=== PATIENT | female | born 1975 | race Caucasian/White ===

== ENCOUNTER 2016-06-05 09:03 | Day surgery (SDC) | payer OTHER ==
[~2016-06-05 09:03] MED LIST: Lactated Ringers 1,000 ML IV SCH; Lidocaine 1%/Sod Bicarbonate in NS 8.4% 1 ML Syringe IV PRN; Sodium Chloride 0.9% 10 ML Syringe FLUSH PRN
[2016-06-05] MEDS ORDERED: Lidocaine 1% with EPINEPHrine 1:100,000 20 ML MDV ONE (09:20)
--- NOTE | 2016-06-05 09:33 | PCM.PREANE ---
Preanesthetic Assessment - ANESTHESIA/TRANSFUSION/FAMILY HX Anesthesia/Transfusion History: No Prior Transfusion(s), Prior Anesthesia Type of Anesthesia Reaction: Reports: Excessive Nausea/Vomiting Family History of Anesthesia Reaction: No Intubation History: Unknown Type of Transfusion Reactions: Reports: Unknown - REVIEW OF SYSTEMS Constitutional: Reports: no symptoms COMMUNICATIONS ASSOCIATE: Reports: no symptoms Respiratory: Reports: no symptoms (diagnosed with pneumonia 05-28-16, nonproductive cough, 2 days left of abx) Cardiovascular: Reports: no symptoms GI: Reports: no symptoms Other: Reports: none - PHYSICAL ASSESSMENT HR: 102 O2 Sat by Pulse Oximetry: 97 RR: 16 BP: 158/94 Temp: 37.2 C Height: 1.65 m Weight: 127.006 kg NPO Status Date: 06/05/16 NPO Status Time: 08:00 (sips of water ) ASA Class: 2 Mental Status: alert & oriented x3 Airway Class: Mallampati = 1 Dentition: Reports: bridge (x2, non removable ) Thyro-Mental Finger Breadths: 3 Mouth Opening Finger Breadths: 3 ROM/Head Extension: full Respiratory Status: lungs clear to auscultation bilaterally Cardiovascular Status: regular rate & rhythm, normal S1, S2, no murmur, blood pressure WNL - ALLERGIES Allergies/Adverse Reactions: Allergies Allergy/AdvReac Type Severity Reaction Status Date / Time No Known Allergies Allergy Verified 06/04/16 13:30 - BLOOD Blood Available: No Product(s) Available: None - ANESTHESIA PLAN Preop [place]: No Anesthesia Type Planned: general anesthesia (PONV, recommend TIVA) - ACKNOWLEDGEMENTS Pt an appropriate candidate for the planned anesthesia: Yes Alternatives and risks of anesthesia discussed w pt/guardian: Yes Pt/Guardian understands and agree with anesthesia plan: Yes PreAnesthesia Questionnaire HEENT History: Reports: Allergic rhinitis Cardiovascular History: Reports: None Respiratory History: Reports: Other (see below) Other Respiratory History: Currently on antibiotics for pneumonia Gastrointestinal History: Reports: None Genitourinary History: Reports: None NCQA SPECIALIST History: Reports: Other OB/BYN History: Vaginal delivery x 2, right labial cyst Musculoskeletal History: Reports: None Neurological History: Reports: Head trauma Psychiatric History: Reports: None Endocrine/Metabolic History: Reports: Obesity/BMI 30+ Hematologic History: Reports: None Immunologic History: Reports: None Oncologic (Cancer) History: Reports: None Dermatologic History: Reports: None - Infectious Disease History Infectious Disease History: Reports: None - Past Surgical History Head Surgeries/Procedures: Reports: Craniotomy HEENT Surgical History: Reports: None Cardiovascular Surgical History: Reports: None Respiratory Surgical History: Reports: None GI Surgical History: Reports: Cholecystectomy Female Surgical History: Reports: Breast reduction, section Endocrine Surgical History: Reports: None Neurological Surgical History: Reports: Other (see below) Other Neurological Surgeries/Procedures: Craniotomy sequestrectomy of skull ( due to horseback riding trauma) Musculoskeletal Surgical History: Reports: None Oncologic Surgical History: Reports: None Dermatological Surgical History: Reports: None - SUBSTANCE USE Smoking Status *Q: Never Smoker Tobacco Use Within Last Twelve Months: No Second Hand Smoke Exposure: No Recreational Drug Use History: No - HOME MEDS Home Medications: Home Meds Cefdinir 300 mg PO BID 06/04/16 [History] Norelgestromin/Ethin.Estradiol [Xulane Patch] 1 patch TRDERM WEEKLY 06/04/16 [ History] - CURRENT (IN HOUSE) MEDS Current Meds: Current Medications Lactated Ringer's (Ringers, Lactated) 1,000 mls @ 125 mls/hr IV ASDIRECTED MCKAY Stop: 06/05/16 23:00 Lidocaine/Sodium Bicarbonate (Buffered Lidocaine 1% In Ns 8.4%) 0.25 ml IV ONETIME PRN PRN Reason: Prior to IV Start Stop: 06/05/16 18:00 Sodium Chloride (Saline Flush) 10 ml FLUSH ASDIRECTED PRN PRN Reason: Keep Vein Open Stop: 06/05/16 18:00
[2016-06-05] MEDS ORDERED: Ondansetron 4 MG/2 ML SDV ONE (09:37)
[2016-06-05] MEDS ORDERED: Lidocaine 1% 2 ML SDV ONE (09:37)
[2016-06-05] MEDS ORDERED: Propofol 200 MG/20 ML SDV ONE ×5 (09:37→10:37)
[2016-06-05] MEDS ORDERED: fentaNYL 250 MCG/5 ML SDV ONE (09:37)
[2016-06-05] MEDS ORDERED: Midazolam 1 MG/ML 2 ML SDV ONE (09:37)
[2016-06-05] MEDS ORDERED: Rocuronium 50 MG/5 ML Vial ONE (10:11)
[2016-06-05] MEDS ORDERED: ceFAZolin 1 GM Vial ONE (10:11)
[2016-06-05] MEDS ORDERED: Ondansetron 4 MG/2 ML SDV IVPUSH PRN ×2 (10:15→11:02)
[2016-06-05] MEDS ORDERED: fentaNYL 100 MCG/2 ML SDV IVPUSH PRN (10:15)
[2016-06-05] MEDS ORDERED: Neostigmine Methylsulfate 1 MG/ML 5 ML Syringe ONE (10:22)
[2016-06-05] MEDS ORDERED: Lactated Ringers 1,000 ML ONE (10:30)
[2016-06-05] MEDS ORDERED: Dexamethasone 4 MG/ML SDV ONE (10:36)
[2016-06-05] MEDS ORDERED: Bacitracin Oint 15 GM Tube ONE (10:37)
[2016-06-05] MEDS ORDERED: Albuterol/Ipratropium 3.0-0.5 MG/3 ML Neb Soln ONE (10:54)
[2016-06-05] MEDS ORDERED: Acetaminophen/oxyCODONE 325-5 MG Tab PO PRN (11:02)
--- NOTE | 2016-06-05 11:08 | PCM.POSTAN ---
POST ANESTHESIA ASSESSMENT - MENTAL STATUS Mental Status: alert, oriented - VITAL SIGNS Pulse Rate: 151 SaO2: 99 Resp Rate: 15 Blood Pressure: 150/103 Temperature: 97.9 F - RESPIRATORY Respiratory Status: respiratory rate WNL, airway patent, O2 saturation stable, supplemental oxygen - CARDIOVASCULAR CV Status: blood pressure stable, elevated pulse rate - GASTROINTESTINAL GI Status: no symptoms - PAIN Pain Score: 0 - POST OP HYDRATION Hydration Status: adequate & stable - OBSERVATIONS Free Text/Narrative:: Patient is coughing. Duo neb ordered.
--- NOTE | 2016-06-05 11:10 | PCM.OPNOTE ---
- General Post-Op/Procedure Note Date of Surgery/Procedure: 06/05/16 Operative Procedure(s): Right labia majora lipectomy Findings: 4 cm x2 cm x1-1/2 cm lipoma. Pre Op Diagnosis: Right labia majora mass lesion Post-Op Diagnosis: Right labia majora lipoma Anesthesia Technique: General ET tube Primary Surgeon: Jamil Nugent Secondary Surgeon: Richy Walters Anesthesia Provider: Alayna Vieira Honing Machine Set Up Operator: Raymond Blank Pathology: Right labium majora mass-consistent with lipoma Fluid Replacement, Intraop: 1,000 EBL in mLs: 30 Complications: None Condition: Good Free Text/Narrative:: Surgeon duration: 38 minutes Complications: None Condition: Good Procedure: Patient is taken to the operating room and placed in a supine position on the operating table patient was returned to supine position She had sequential compression stockings in place for DVT prophylaxis and was administered 3 g of Ancef IV preop for infection prophylaxis. Her body mass index is 46. She was then administered general endotracheal anesthesia. After adequate anesthesia she is placed in a dorsal lithotomy position. She was prepped and draped in usual fashion. The right labia majora lesion was evaluated under anesthesia prior to the prep and was felt to be possibly a lipoma. There was no evidence that it was a hernia at that time. The area of the right labia majora lesion was found to be approximately 4 cm in length by approximately 2 cm in width. It was freely movable under the skin. The plan was to reduce the amount of skin overlying the lipoma and to remove the lipoma itself. The overlying excess skin was bunched together and approximately 8 Allis clamps were used to maral the margin of excision. The excess skin was then removed using a scissors. At this point the lipoma itself was dissected free using sharp and blunt dissection. Sutures and cautery were used for hemostasis. The subcutaneous area was closed with a running 3-0 Vicryl suture. Hemostasis was current at this time and the skin was reapproximated using numerous 3-0 Monocryl sutures on a cutting needle. At this time hemostasis was confirmed. Sponge instrument needle counts were correct. She was returned to a supine position. The patient was awakened from general endotracheal anesthesia and was discharged from the operating room in good condition.
[2016-06-05] MEDS ORDERED: Ketorolac 30 MG/ML SDV IVPUSH SCH (11:15)
[2016-06-05] MEDS ORDERED: Meperidine PF 50 MG/ML Syringe IVPUSH PRN (11:25)
[2016-06-05] MEDS ORDERED: HYDROmorphone 0.5 MG/0.5 ML Syringe IVPUSH PRN (11:25)
[2016-06-05 13:27] VITALS: BP 128/75
== END 2016-06-05 13:16 | disposition home or self-care (01) ==
LOC: JD.SDS 09:03
PROVIDERS: ATTEND Obstetrics & Gynecology
DX: D17.39 Benign lipomatous neoplasm of skin and subcutaneous tissue of other sites (principal); E66.9 Obesity, unspecified; Z79.899 Other long term (current) drug therapy; Z98.890 Other specified postprocedural states; Z78.9 Other specified health status; Z68.41 Body mass index [BMI] 40.0-44.9, adult
CPT/HCPCS: 00940; 88305; 88305-26; 94664; A9270-GY; J0690; J1100; J1885; J2250; J2405; J2704; J2710; J3010; J7120

== ENCOUNTER 2018-05-04 19:54 | Emergency (ER) | payer MEDICAID ==
[2018-05-04 20:16] VITALS: BP 149/91
[2018-05-04] MEDS ORDERED: Ondansetron 4 MG/2 ML SDV IVPUSH ONE ×2 (20:21→21:27)
[2018-05-04] MEDS ORDERED: Sodium Chloride 0.9% 10 ML Syringe FLUSH PRN (20:21)
[2018-05-04] MEDS ORDERED: Sodium Chloride 0.9% 1,000 ML IV SCH (20:30)
--- NOTE | 2018-05-04 20:57 | EDM.PDOC ---
ED HPI GENERAL MEDICAL PROBLEM - General Chief Complaint: Gastrointestinal Problem Stated Complaint: vommitting 7 hours unable to keep down fluids Time Seen by Provider: 05/04/18 20:16 Source of Information: Reports: Patient History Limitations: Reports: No Limitations - History of Present Illness INITIAL COMMENTS - FREE TEXT/NARRATIVE: The patient presents with nausea, vomiting and stomach cramps since this morning. She went to work feeling fine and she had a muffin and donut and when she went to lunch with her family she developed nausea and vomiting after. She was going every 10 minutes at one time. She will get stomach cramping first and then she will vomit. She does not have a gallbladder but she does have her appendix. She does not think she ate any bad food and she has not been around anyone who is sick. She does work at the [employer] and is in contact with different customers. Onset: Gradual Duration: Hour(s): Location: Reports: Abdomen Quality: Reports: Other (Cramping) Severity: Moderate Improves with: Reports: None Worsens with: Reports: None Associated Symptoms: Reports: Nausea/Vomiting. Denies: Chest Pain, Cough, Fever /Chills, Headaches, Shortness of Breath Abdomen Pain Score (Numeric/FACES): 4 - Related Data Allergies Allergy/AdvReac Type Severity Reaction Status Date / Time No Known Allergies Allergy Verified 05/04/18 20:18 Home Meds: Home Meds Cefdinir 300 mg PO BID 06/04/16 [History] Norelgestromin/Ethin.Estradiol [Xulane Patch] 1 patch TRDERM WEEKLY 06/04/16 [ History] Ibuprofen 600 mg PO Q4HR PRN #30 tablet 06/05/16 [Rx] Past Medical History HEENT History: Reports: Allergic Rhinitis Cardiovascular History: Reports: None Respiratory History: Reports: Other (See Below) Other Respiratory History: Currently on antibiotics for pneumonia Gastrointestinal History: Reports: None Genitourinary History: Reports: None ACQUISITION LEAD History: Reports: Other (See Below) Other ACQUISITION LEAD History: breast reduction Musculoskeletal History: Reports: None Neurological History: Reports: Head Trauma Psychiatric History: Reports: None Endocrine/Metabolic History: Reports: Obesity/BMI 30+ Hematologic History: Reports: None Immunologic History: Reports: None Oncologic (Cancer) History: Reports: None Dermatologic History: Reports: None - Infectious Disease History Infectious Disease History: Reports: None - Past Surgical History Head Surgeries/Procedures: Reports: Craniotomy Cardiovascular Surgical History: Reports: None GI Surgical History: Reports: Cholecystectomy Female Surgical History: Reports: Section Endocrine Surgical History: Reports: None Neurological Surgical History: Reports: Other (See Below) Musculoskeletal Surgical History: Reports: Other (See Below) Oncologic Surgical History: Reports: None Dermatological Surgical History: Reports: None Social & Family History - Tobacco Use Smoking Status *Q: Never Smoker - Caffeine Use Caffeine Use: Reports: Coffee - Recreational Drug Use Recreational Drug Use: No ED ROS GENERAL - Review of Systems Review Of Systems: See Below Constitutional: Reports: No Symptoms HEENT: Reports: No Symptoms Respiratory: Reports: No Symptoms Cardiovascular: Reports: No Symptoms Endocrine: Reports: No Symptoms GI/Abdominal: Reports: Abdominal Pain, Nausea, Vomiting. Denies: Diarrhea : Reports: No Symptoms Musculoskeletal: Reports: No Symptoms ED EXAM, GI/ABD - Physical Exam Exam: See Below Exam Limited By: No Limitations General Appearance: Alert, No Apparent Distress Ears: Normal External Exam Nose: Normal Inspection Head: Atraumatic, Normocephalic Neck: Normal Inspection Respiratory/Chest: No Respiratory Distress, Lungs Clear, Normal Breath Sounds Cardiovascular: Regular Rate, Rhythm, No Edema, No Murmur GI/Abdominal Exam: Soft, Non-Tender, No Organomegaly, No Mass Back Exam: Normal Inspection Extremities: Normal Inspection Course - Vital Signs Last Recorded V/S: Last Vital Signs Temp 97.5 F 05/04/18 20:10 Pulse 87 05/04/18 20:10 Resp 16 05/04/18 20:10 BP 149/91 H 05/04/18 20:10 Pulse Ox 98 05/04/18 20:10 - Orders/Labs/Meds Orders: Active Orders 24 hr Category Date Time Status Peripheral IV Care [RC] . DIRECTED Care 05/04/18 20:21 Active Sodium Chloride 0.9% [Normal Saline] 1,000 ml Med 05/04/18 20:30 Active IV .BOLUS Sodium Chloride 0.9% [Saline Flush] Med 05/04/18 20:21 Active 10 ml FLUSH ASDIRECTED PRN ED Antiemetic Medication Reflex [OM.PC] Click To Edit Oth 05/04/18 20:21 Ordered Peripheral IV Insertion Adult [OM.PC] Urgent Oth 05/04/18 20:21 Ordered Medication Orders Sodium Chloride (Normal Saline) 1,000 mls @ 1,000 mls/hr IV .BOLUS MCKAY Last Admin: 05/04/18 20:37 Dose: 1,000 mls/hr Sodium Chloride (Saline Flush) 10 ml FLUSH ASDIRECTED PRN PRN Reason: Keep Vein Open Last Admin: 05/04/18 20:37 Dose: 10 ml Labs: Laboratory Tests 05/04/18 05/04/18 05/04/18 Range/Units 20:32 20:32 20:32 WBC 10.50 H (3.98-10.04) K/mm3 RBC 4.75 (3.98-5.22) M/mm3 Hgb 13.5 (11.2-15.7) gm/L Hct 41.6 (34.1-44.9) % MCV 87.6 (79.4-94.8) fl MCH 28.4 (25.6-32.2) pg MCHC 32.5 (32.2-35.5) g/dl RDW Std Deviation 48.8 H (36.4-46.3) fL Plt Count 322 (182-369) K/mm3 MPV 9.0 L (9.4-12.3) fl Neut % (Auto) 68.9 (34.0-71.1) % Lymph % (Auto) 22.0 (19.3-51.7) % [place] % (Auto) 7.0 (4.7-12.5) % Eos % (Auto) 1.6 (0.7-5.8) Baso % (Auto) 0.3 (0.1-1.2) % Neut # (Auto) 7.24 H (1.56-6.13) K/mm3 Lymph # (Auto) 2.31 (1.18-3.74) K/mm3 [place] # (Auto) 0.73 H (0.24-0.36) K/mm3 Eos # (Auto) 0.17 (0.04-0.36) K/mm3 Baso # (Auto) 0.03 (0.01-0.08) K/mm3 Sodium 140 (136-145) mEq/L Potassium 3.7 (3.5-5.1) mEq/L Chloride 104 (98-107) mEq/L Carbon Dioxide 23 (21-32) mEq/L Anion Gap 16.7 H (5-15) BUN 11 (7-18) mg/dL Creatinine 0.9 (0.55-1.02) mg/dL Est Cr Clr Drug Dosing 73.27 mL/min Estimated GFR (MDRD) > 60 (>60) mL/min BUN/Creatinine Ratio 12.2 L (14-18) Glucose 91 (74-106) mg/dL Calcium 9.0 (8.5-10.1) mg/dL Total Bilirubin 0.5 (0.2-1.0) mg/dL AST 17 (15-37) U/L ALT 18 (14-59) U/L Alkaline Phosphatase 83 (46-116) U/L Total Protein 8.0 (6.4-8.2) g/dl Albumin 3.4 (3.4-5.0) g/dl Globulin 4.6 gm/dL Albumin/Globulin Ratio 0.7 L (1-2) Lipase 95 (73-393) U/L HCG, Qual Negative (NEGATIVE) Urine Color (Yellow) Urine Appearance (Clear) Urine pH (5.0-8.0) Ur Specific [place] (1.005-1.030) Urine Protein (Negative) Urine Glucose (UA) (Negative) Urine Ketones (Negative) Urine Occult Blood (Negative) Urine Nitrite (Negative) Urine Bilirubin (Negative) Urine Urobilinogen (0.2-1.0) Ur Leukocyte Esterase (Negative) Urine RBC (0-5) /hpf Urine WBC (0-5) /hpf Ur Epithelial Cells (0-5) /hpf Urine Bacteria (FEW) /hpf Urine Mucus (FEW) /hpf 05/04/18 Range/Units 21:45 WBC (3.98-10.04) K/mm3 RBC (3.98-5.22) M/mm3 Hgb (11.2-15.7) gm/L Hct (34.1-44.9) % MCV (79.4-94.8) fl MCH (25.6-32.2) pg MCHC (32.2-35.5) g/dl RDW Std Deviation (36.4-46.3) fL Plt Count (182-369) K/mm3 MPV (9.4-12.3) fl Neut % (Auto) (34.0-71.1) % Lymph % (Auto) (19.3-51.7) % [place] % (Auto) (4.7-12.5) % Eos % (Auto) (0.7-5.8) Baso % (Auto) (0.1-1.2) % Neut # (Auto) (1.56-6.13) K/mm3 Lymph # (Auto) (1.18-3.74) K/mm3 [place] # (Auto) (0.24-0.36) K/mm3 Eos # (Auto) (0.04-0.36) K/mm3 Baso # (Auto) (0.01-0.08) K/mm3 Sodium (136-145) mEq/L Potassium (3.5-5.1) mEq/L Chloride (98-107) mEq/L Carbon Dioxide (21-32) mEq/L Anion Gap (5-15) BUN (7-18) mg/dL Creatinine (0.55-1.02) mg/dL Est Cr Clr Drug Dosing mL/min Estimated GFR (MDRD) (>60) mL/min BUN/Creatinine Ratio (14-18) Glucose (74-106) mg/dL Calcium (8.5-10.1) mg/dL Total Bilirubin (0.2-1.0) mg/dL AST (15-37) U/L ALT (14-59) U/L Alkaline Phosphatase (46-116) U/L Total Protein (6.4-8.2) g/dl Albumin (3.4-5.0) g/dl Globulin gm/dL Albumin/Globulin Ratio (1-2) Lipase (73-393) U/L HCG, Qual (NEGATIVE) Urine Color Yellow (Yellow) Urine Appearance Clear (Clear) Urine pH 5.5 (5.0-8.0) Ur Specific [place] > or = 1.030 (1.005-1.030) Urine Protein Negative (Negative) Urine Glucose (UA) Negative (Negative) Urine Ketones Trace H (Negative) Urine Occult Blood Negative (Negative) Urine Nitrite Negative (Negative) Urine Bilirubin 1+ H (Negative) Urine Urobilinogen 0.2 (0.2-1.0) Ur Leukocyte Esterase 1+ H (Negative) Urine RBC 0-5 (0-5) /hpf Urine WBC 0-5 (0-5) /hpf Ur Epithelial Cells 5-10 H (0-5) /hpf Urine Bacteria Few (FEW) /hpf Urine Mucus Few (FEW) /hpf Meds: Medications Generic Name Dose Route Start Last Admin Trade Name Freq PRN Reason Stop Dose Admin Sodium Chloride 1,000 mls @ 1,000 mls/hr 05/04/18 20:30 05/04/18 20:37 Normal Saline IV 1,000 mls/hr .BOLUS MCKAY Administration Sodium Chloride 10 ml 05/04/18 20:21 05/04/18 20:37 Saline Flush FLUSH 10 ml ASDIRECTED PRN Administration Keep Vein Open Discontinued Medications Generic Name Dose Route Start Last Admin Trade Name Freq PRN Reason Stop Dose Admin Ondansetron HCl 4 mg 05/04/18 20:21 05/04/18 20:37 Zofran IVPUSH 05/04/18 20:22 4 mg ONETIME ONE Administration Ondansetron HCl 4 mg 05/04/18 21:27 05/04/18 21:44 Zofran IVPUSH 05/04/18 21:28 4 mg ONETIME ONE Administration - Re-Assessments/Exams Free Text/Narrative Re-Assessment/Exam: 05/04/18 20:54 I ordered an IV NS 1L bolus, zofran 4mg IV, labs, and UA. 05/04/18 22:35 Her WBC was elevated at 10.5. Her anion gap was elevated at 16.7. Her lipase was normal. Her HCG was negative. Her UA shows no UTI. She vomited twice so I gave her more zofran. She feels better and would like to go home. I will give her a prescription for zofran. Departure - Departure Time of Disposition: 22:40 Disposition: Home, Self-Care 01 Condition: Good Clinical Impression: Gastroenteritis, Vomiting - Discharge Information *PRESCRIPTION DRUG MONITORING PROGRAM REVIEWED*: Not Applicable *COPY OF PRESCRIPTION DRUG MONITORING REPORT IN PATIENT LEA: Not Applicable Referrals: Lucia Dimas PA-C [Primary Care Provider] - 1 Week Forms: ED Department Discharge Additional Instructions: Drink plenty of fluids. Take tylenol for any pain. Take the zofran every 6 hours as needed for nausea and vomiting. Please return if you cannot control the vomiting or if your have more pain and if that pain goes to the right lower abdomen where your appendix is. - My Orders Last 24 Hours: My Active Orders 05/04/18 20:21 Peripheral IV Care [RC] . DIRECTED Sodium Chloride 0.9% [Saline Flush] 10 ml FLUSH ASDIRECTED PRN ED Antiemetic Medication Reflex [OM.PC] Click To Edit Peripheral IV Insertion Adult [OM.PC] Urgent 05/04/18 20:30 Sodium Chloride 0.9% [Normal Saline] 1,000 ml IV .BOLUS - Assessment/Plan Last 24 Hours: My Active Orders 05/04/18 20:21 Peripheral IV Care [RC] . DIRECTED Sodium Chloride 0.9% [Saline Flush] 10 ml FLUSH ASDIRECTED PRN ED Antiemetic Medication Reflex [OM.PC] Click To Edit Peripheral IV Insertion Adult [OM.PC] Urgent 05/04/18 20:30 Sodium Chloride 0.9% [Normal Saline] 1,000 ml IV .BOLUS
== END 2018-05-04 22:50 | disposition home or self-care (01) ==
LOC: JD.ED 19:54
DX: K52.9 Noninfective gastroenteritis and colitis, unspecified (principal); E66.9 Obesity, unspecified; Z90.49 Acquired absence of other specified parts of digestive tract
CPT/HCPCS: 36415; 80053; 81001; 83690; 84703; 85025; 96361; 96374; 96376; 99284; J2405; J7040